=== PATIENT | female | born 1980 | race African-American/Black ===

== ENCOUNTER 2017-07-31 07:05 | Emergency (ER) | payer OTHER, SELFPAY ==
[2017-07-31] MEDS ORDERED: Bupivacaine 0.5% 10 ML VIAL ONE (07:23)
[2017-07-31] MEDS ORDERED: Lidocaine Viscous Sol 2% 15 ml UD Cup ONE (07:27)
[2017-07-31] MEDS ORDERED: Ketorolac Tromethamine 60 MG/2 ML VIAL ONE (07:27)
[2017-07-31] MEDS ORDERED: Lidocaine 1% w/Epinephrine 1:200K 30 ML VIAL ONE (07:27)
[2017-07-31] MEDS ORDERED: Clindamycin 150 MG CAP ONE (07:54)
== END 2017-07-31 08:15 | disposition home or self-care (01) ==
LOC: ERS 07:05
DX: K02.9 Dental caries, unspecified (principal); I10 Essential (primary) hypertension; Z87.891 Personal history of nicotine dependence; Z79.899 Other long term (current) drug therapy
CPT/HCPCS: 64400; 96372; J1885; J3490

== ENCOUNTER 2018-10-08 12:34 | Emergency (ER) | payer OTHER, SELFPAY ==
[2018-10-08] MEDS ORDERED: HYDROcodone/Acetaminophen 10/325 mg Tablet ONE (13:12)
== END 2018-10-08 13:17 | disposition home or self-care (01) ==
LOC: ERS 12:34
DX: K03.81 Cracked tooth (principal); F41.9 Anxiety disorder, unspecified; Z79.899 Other long term (current) drug therapy
CPT/HCPCS: 99282

== ENCOUNTER 2019-03-04 09:00 | Outpatient (CLI) | payer OTHER ==
--- NOTE | 2019-03-04 10:10 | CT ---
CT ABDOMEN AND PELVIS WITH IV CONTRAST 03/04/2019 CLINICAL INFORMATION: Umbilical pain and swelling for a few months. Patient states intermittent drainage from the umbilicus . COMPARISON: 03/12/2017 Technique: Multiple contiguous axial CT images are obtained through the abdomen and pelvis with IV contrast. Cor onal reformatted images are provided. FINDINGS: Lower Chest: within normal limits. Vessels: The abdominal aorta is normal in caliber without evidence of an aortic dissection. Abdomen: Portal vein:Patent Gallbladder: Within normal limits for CT imaging. Liver: within normal limits. Spleen: within normal limits. Pancreas: within normal limits. Adrenals: within normal limits. Kidneys: within normal limits. Bowel: Normal caliber. Appendix: The appendix is visualized and normal in caliber. Peritoneum: No ascites or free air; no fluid collection. Mesentery and Retroperitoneum: No enlarged mesenteric or retroperitoneal lymph nodes. Abdominal Wall: At the umbilicus, there is a masslike increased density structure measuring 16 mm x 1 5 mm. This does represent an interval change when compared to the study in 2017 and was not visualized on that exam. Pelvis: Reproductive Organs: Small low-density structures in each ovary likely related to dominant ovarian fo llicles. Uterus is not visualized likely due to prior hysterectomy. Pelvis within normal limits. Bladder: within normal limits. Bones: within normal limits. IMPRESSION: 1. Increased density masslike structure measuring 16 mm in greatest dimension at the level of the umb ilicus. This does represent an interval change from study in 2017. Exact etiology for this structure is uncertain. Clinical correlation is suggested as this is at the skin surface. 2. Interval hysterectomy. 3. No acute findings in the abdomen or pelvis.
--- NOTE | 2019-03-04 16:30 | HP ---
HISTORY OF PRESENT ILLNESS: Kelly Hussein is a 38-year-old female with a several-month history of enlarging umbilicus. It is very painful. She has been on antibiotics and feels somewhat better, but has still an umbilical mass. She underwent a CAT scan of the abdomen and pelvis revealing absence of any hernia, just the umbilical mass. Although completing antibiotics, it is still very indurated and is tender to palpation, and plan is for excision of this umbilical mass/cyst with repair of hernia if indicated, but no mesh will be used. She understands risks and benefits and consents. MEDICATIONS: 1. Lisinopril 20 mg a day. 2. BuSpar daily. 3. Cipro completed. PAST MEDICAL HISTORY: History of alcoholism and drug abuse, now sober; anxiety; allergies; headaches; and hypertension. ALLERGIES: PENICILLIN ANAPHYLAXIS. PAST SURGICAL HISTORY: Hysterectomy in 08/2018, at [facility]. REVIEW OF SYSTEMS: Noncontributory. PHYSICAL EXAMINATION: VITAL SIGNS: Weight 153 pounds, height 65 inches, 25 BMI, blood pressure 141/100, heart rate 113, respiratory rate 19. HEAD, EYES, EARS, NOSE, AND THROAT: Unremarkable. LUNGS: Clear to auscultation. CARDIAC: Regular rate and rhythm without murmur or gallop. ABDOMEN: Soft and nontender except the umbilicus, where she has a tender umbilical mass with hyperpigmented skin. It is very tender. She has a piercing above this. EXTREMITIES: Unremarkable. ASSESSMENT AND PLAN: Umbilical mass without radiological imaging evidence of a hernia. We would recommend excision of this umbilical mass and fabrication of the umbilicus. She understands risks and benefits of surgery and consents. She does not care about the piercing. She has not used this piercing. She has used in her 20s. Job ID: [id number]
== END 2019-03-04 09:01 | disposition home or self-care (01) ==
LOC: BICCT 09:00
PROVIDERS: ATTEND Specialist
DX: R10.33 Periumbilical pain (principal); R93.5 Abnormal findings on diagnostic imaging of other abdominal regions, including retroperitoneum; Z90.710 Acquired absence of both cervix and uterus
CPT/HCPCS: 74177

== ENCOUNTER 2019-03-31 09:49 | Day surgery (SDC) | payer OTHER ==
[2019-03-30 09:15] VITALS: BMI 25.1
[2019-03-31 10:24] LABS: #Basophils 0.1 thou/uL (0.0-0.2); #Eosinphils 0.3 thou/uL (0.0-0.7); #Lymphocytes 1.7 thou/uL (1.20-3.40); #Monocytes 0.6 thou/uL (0.11-0.59); #Neutrophils 3.2 thou/uL (1.40-6.50); %Basophils 1.5 % (0.0-1.0); %Eosinophils 4.3 % (0.0-10.0); %Lymphocytes 29.1 % (21.0-51.0); %Monocytes 9.4 % (0.0-10.0); %Neutrophils 55.7 % (42.0-75.0); Mean Corpuscular HGB CONC 35.3 g/dL (32.0-36.0); Mean Corpuscular Hemoglobin 32.6 pg (27.0-31.0); Mean Corpuscular Volume 92.3 fL (78.0-98.0); Mean Platelet Volume 8.1 fL (7.4-10.4); Platelet Count 236 thou/uL (130-400); RBC Distribution Width 12.7 % (11.5-14.5); Red Blood Cell (RBC) Count 4.28 mill/uL (4.20-5.40); White Blood Cell (WBC) Count 5.8 thou/uL (4.8-10.8)
[2019-03-31] MEDS ORDERED: Ketorolac Tromethamine 30 MG/ML VIAL ONE (10:35)
[2019-03-31] MEDS ORDERED: Levofloxacin 500 mg/D5W 100 ml Premix Bag ONE (10:35)
[2019-03-31] MEDS ORDERED: Midazolam HCl 2 mg/2 ml Vial ONE (10:35)
[2019-03-31 10:52] LABS: Anion Gap 15 mmol/L (10-20); BUN (Urea Nitrogen) 11 mg/dL (7.0-18.7); Calc. Creatinine Clearance 99 mL/min (70-130); Calcium 9.6 mg/dL (7.8-10.44); Carbon Dioxide 21 mmol/L (22-29); Chloride 104 mmol/L (98-107); Estimated GFR-MDRD Greater than 90; Glucose 95 mg/dL (70-105); Potassium 4.3 mmol/L (3.5-5.1); Sodium 136 mmol/L (136-145)
[2019-03-31] MEDS ORDERED: Fentanyl 250 MCG/5 ML VIAL ONE (11:34)
[2019-03-31] MEDS ORDERED: Bupivacaine HCl 0.5%/Epinephrine 1:200,000/PF 30 ml Vial ONE (11:54)
[2019-03-31] MEDS ORDERED: Lidocaine 2% PF 5 ML VIAL ONE (11:54)
[2019-03-31] MEDS ORDERED: HYDROcodone/Acetaminophen 5/325 mg Tablet ONE (13:52)
--- NOTE | 2019-03-31 15:54 | OP ---
DATE OF PROCEDURE: 03/31/2019 PREOPERATIVE DIAGNOSES: 1. Umbilical pain. 2. Umbilical mass. POSTOPERATIVE DIAGNOSIS: Umbilical hernia, incarcerated with fat. PROCEDURE PERFORMED: 1. Umbilical hernia repair without mesh. 2. Resection of umbilicus with umbilicoplasty. ANESTHESIA: General, local 0.5% Marcaine with epinephrine 30 mL mixed with 2% Xylocaine 10 mL. DESCRIPTION OF PROCEDURE: The patient was taken to the operating room, where under general anesthesia, abdomen was prepared with ChloraPrep and draped in routine fashion. We thinned out skin, blackened skin, infraumbilical incision was made and carried out to skin and subcutaneous tissue through normal skin and there was noted to be a small umbilical hernia defect with incarcerated fat, that was transected and dissected free. The fascia of umbilicus was excised elliptically and submitted to Pathology. Hemostasis was obtained with cautery. Fascia was approximated with [id number] with interrupted sutures of #1 Maxon. Umbilicoplasty was undertaken with the subcutaneous tissues approximated in 4 quadrants with 3-0 Monocryl and was secured to the fascia. 4-0 Monocryl to close the subdermal tissue. Umbilicoplasty performed. Dermal glue applied. Local anesthetic was infiltrated in the skin and subcutaneous tissue about the operative site. The patient tolerated the procedure well. Job ID: [id number]
--- NOTE | 2019-04-02 08:11 | EKG ---
Test Reason : PREOP Blood Pressure : / mmHG Vent. Rate : 097 BPM Atrial Rate : 097 BPM P-R Int : 138 ms QRS Dur : 076 ms QT Int : 362 ms P-R-T Axes : 063 041 032 degrees QTc Int : 459 ms Normal sinus rhythm Normal ECG When compared with ECG of 12-MAR-2017 12:09, Nonspecific T wave abnormality has replaced inverted T waves in Inferior leads Nonspecific T wave abnormality no longer evident in Anterolateral leads Confirmed by DR. Rene MILLS ([id number]) on 04/02/2019 8:11:11 AM Referred By: MINA Confirmed By:DR. Rene MILLS
== END 2019-03-31 14:35 | disposition home or self-care (01) ==
LOC: SDC 09:49
PROVIDERS: ATTEND Specialist
PROC: 0WQF0ZZ Repair Abdominal Wall, Open Approach (ICD-10-PCS; principal; 2019-03-31)
DX: K42.0 Umbilical hernia with obstruction, without gangrene (principal); N80.8 Other endometriosis; Z88.0 Allergy status to penicillin; Z79.899 Other long term (current) drug therapy
CPT/HCPCS: 36415; 80048; 85025; 88305; 93005; 93010; J0131; J0670; J1885; J1956; J2001; J2250; J3010

== ENCOUNTER 2019-06-21 07:35 | Outpatient (CLI) | payer OTHER ==
--- NOTE | 2019-06-21 12:02 | RAD ---
ESOPHAGRAM: INDICATION: Dysphagia. FINDINGS: Swallowing mechanism and esophagus appear unremarkable. No evidence of stricture. A barium tablet p assed through the EG junction without difficulty. No significant diaphragmatic hernia. No reflux de monstrated. IMPRESSION: Unremarkable esophagram. POS: AMIE
== END 2019-06-21 07:36 | disposition home or self-care (01) ==
LOC: RAD 07:35
PROVIDERS: ATTEND Physician Assistant Medical
DX: R13.10 Dysphagia, unspecified (principal); R05 Cough
CPT/HCPCS: 74220

== ENCOUNTER 2019-07-06 10:13 | Emergency (ER) | payer OTHER | END 2019-07-06 10:51 | disposition home or self-care (01) | LOC: ERS 10:13 | DX: K05.10 Chronic gingivitis, plaque induced (principal); K02.9 Dental caries, unspecified; I10 Essential (primary) hypertension; F41.9 Anxiety disorder, unspecified; Z87.891 Personal history of nicotine dependence | CPT/HCPCS: 99283 ==

== ENCOUNTER 2019-12-06 07:31 | Outpatient (CLI) | payer OTHER ==
--- NOTE | 2019-12-06 09:59 | MRI ---
MRI RIGHT FOREARM WITHOUT CONTRAST: DATE: 12/06/2019. 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 FINDINGS: No comparisons. There is a 4 mm circumscribed mass at the ulnar aspect of the ulnar nerve in its course subjacent to the flexor carpi ulnaris muscle approximately 5.5 cm proximal to the distal ulnar margin. There is f ocal fatty infiltration of the overlying flexor carpi ulnaris muscle in this region. This mass is in separable from the ulnar nerve and demonstrates no definite fat plane between this and the superficia l flexor carpi ulnaris muscle. The signal characteristics of this mass are isointense to skeletal mu scle on the T1 and fluid sensitive sequences. The ulnar nerve itself demonstrates normal size and si gnal intensity. The remainder of the visualized course of the regional major neurovascular structure s appear unremarkable. Regional marrow and muscular signal appear normal. There is partially visualized presumed ganglion f ormation present at the dorsal aspect of the 2nd CMC joint measuring 11 mm in greatest transverse dim ension and about 11 mm in craniocaudal dimension. IMPRESSION: Nonspecific 4 mm mass inseparable from the ulnar nerve as described above. Given the signal intensit y similar to skeletal muscle and history of trauma to this region, this could represent displacement of flexor carpi ulnaris musculature to abut the ulnar nerve (such as with fascial muscle herniation). Posttraumatic neuroma could also be considered. Other etiologies are not excluded. Consider postc ontrast imaging as indicated. POS: RAQUEL
== END 2019-12-06 07:32 | disposition home or self-care (01) ==
LOC: BICMRI 07:31
PROVIDERS: ATTEND Orthopaedic Surgery Hand Surgery
DX: S54.01XA Injury of ulnar nerve at forearm level, right arm, initial encounter (principal)

== ENCOUNTER 2020-03-16 05:27 | Outpatient (CLI) | payer OTHER ==
[2020-03-16 16:37] LABS: #Basophils 0.1 thou/uL (0.0-0.2); #Eosinphils 0.5 thou/uL (0.0-0.7); #Lymphocytes 1.7 thou/uL (1.20-3.40); #Monocytes 0.7 thou/uL (0.11-0.59); #Neutrophils 4.7 thou/uL (1.40-6.50); %Basophils 0.8 % (0.0-1.0); %Lymphocytes 22.4 % (21.0-51.0); %Monocytes 8.9 % (0.0-10.0); Hemoglobin 12.8 g/dL (12.0-16.0); Mean Corpuscular HGB CONC 34.7 g/dL (32.0-36.0); Mean Corpuscular Hemoglobin 31.9 pg (27.0-31.0); Mean Corpuscular Volume 91.9 fL (78.0-98.0); Mean Platelet Volume 8.8 fL (7.4-10.4); Platelet Count 223 thou/uL (130-400); Red Blood Cell (RBC) Count 4.01 mill/uL (4.20-5.40); White Blood Cell (WBC) Count 7.6 thou/uL (4.8-10.8)
[2020-03-16 16:47] LABS: BHCG - Serum Negative (NEGATIVE); Pregs Control Background? CLEAR/WHITE (CLR/WHITE); Pregs Control Bar Appear? YES (CONTROL BAR)
[2020-03-17 12:52] LABS: SARS-CoV-2 MS2 Positive; SARS-CoV-2 N Gene Negative; SARS-CoV-2 S Gene Negative; SARS-CoV-2 orf1ab Negative
== END 2020-03-16 05:28 | disposition home or self-care (01) ==
LOC: LABBT 05:27
PROVIDERS: ATTEND Orthopaedic Surgery Hand Surgery
DX: Z01.812 Encounter for preprocedural laboratory examination (principal); Z11.59 Encounter for screening for other viral diseases; D36.10 Benign neoplasm of peripheral nerves and autonomic nervous system, unspecified
CPT/HCPCS: 84703; 85025; 87635; U0003

== ENCOUNTER 2020-03-20 13:12 | Observation (INO) | payer OTHER ==
[~2020-03-20 13:12] MED LIST: Esmolol 100 MG/10 ML VIAL ONE; Ketorolac Tromethamine 30 MG/ML VIAL ONE; Lidocaine 1% PF 5 ML VIAL ONE; Ondansetron PF 4 MG/2 ML Vial ONE; PROPOFOL 200 MG/20 ML VIAL ONE
[2020-03-20] MEDS ORDERED: Sodium Chloride 0.9% 10 ML ONE (14:48)
[2020-03-20] MEDS ORDERED: Bupivacaine PF 0.5% 30 ML VIAL ONE (14:48)
[2020-03-20] MEDS ORDERED: Bacitracin Zinc Ointment 30 gm TUBE ONE (14:48)
[2020-03-20] MEDS ORDERED: Betamet Acet/Betamet Na Ph 30 MG/5 ML VIAL ONE ×2 (14:48→18:29)
[2020-03-20] MEDS ORDERED: Midazolam HCl 2 mg/2 ml Vial ONE ×2 (14:50→15:15)
[2020-03-20] MEDS ORDERED: Fentanyl 100 MCG/2 ML VIAL ONE ×4 (15:15→19:43)
[2020-03-20] MEDS ORDERED: HYDROmorphone 2 MG/ML VIAL ONE (18:04)
[2020-03-20] MEDS ORDERED: Promethazine HCl 25 MG/ML VIAL IM PRN ×2 (19:18→19:27)
[2020-03-20] MEDS ORDERED: Meperidine HCl/PF 25 MG/ML VIAL SLOW IVP PRN (19:18)
[2020-03-20] MEDS ORDERED: HYDROmorphone 2 MG/ML VIAL SLOW IVP PRN (19:18)
[2020-03-20] MEDS ORDERED: PACU-Morphine 4MG/ML VIAL SLOW IVP PRN (19:18)
[2020-03-20] MEDS ORDERED: Ondansetron HCl/PF 4 MG/2 ML Vial IVP PRN (19:18)
[2020-03-20] MEDS ORDERED: Morphine Sulfate 2 MG/ML SYRINGE SLOW IVP PRN (19:18)
[2020-03-20] MEDS ORDERED: Promethazine HCl 25 MG/ML VIAL SLOW IVP PRN (19:18)
[2020-03-20] MEDS ORDERED: traMADol HCl 50 MG TAB PO PRN (19:27)
[2020-03-20] MEDS ORDERED: Milk Of Magnesia 30 ML UDCUP PO PRN (19:27)
[2020-03-20] MEDS ORDERED: Fentanyl 100 MCG/2 ML VIAL SLOW IVP PRN (19:27)
[2020-03-20] MEDS ORDERED: Morphine 4 MG/ML VIAL SLOW IVP PRN (19:27)
[2020-03-20] MEDS ORDERED: Ondansetron PF 4 MG/2 ML Vial IV PRN (19:27)
[2020-03-20] MEDS ORDERED: Acetaminophen/Codeine 30-300mg Tablet PO PRN (19:27)
[2020-03-20] MEDS ORDERED: Bisacodyl 10 MG SUPP PR PRN (19:27)
[2020-03-20] MEDS ORDERED: Acetaminophen 325 MG TAB PO PRN (19:27)
[2020-03-20] MEDS ORDERED: Communication Order-Pharmacy FS SCH (19:30)
[2020-03-20] MEDS ORDERED: Ketorolac Tromethamine 30 MG/ML VIAL IVP PRN (19:30)
[2020-03-20] MEDS ORDERED: Meperidine HCl/PF 25 MG/ML VIAL IM PRN (19:30)
[2020-03-20] MEDS: Aspirin 81 mg Enteric Coated Tablet PO SCH (21:44)
[2020-03-20] MEDS ORDERED: TETANUS AND DIPHTHERIA TOX/PF 0.5 ML DISP.SYRIN IM SCH (22:00)
[2020-03-20 22:51] VITALS: BMI 25.1
[2020-03-21] MEDS: Sodium Chloride 0.9% 1,000 ML IV SCH ×3 (01:42→18:36)
[2020-03-21] MEDS: Vancomycin HCl 1.25 GM in Sodium Chloride 0.9% 250 ML 250 ML IVPB SCH ×2 (03:44→17:04)
--- NOTE | 2020-03-21 08:37 | OP ---
DATE OF PROCEDURE: 03/20/2020 PREOPERATIVE DIAGNOSES: 1. 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 2. Right cubital tunnel level ulnar nerve compression. FINDINGS: 1. Severe right cubital tunnel ulnar nerve compression at the cubital tunnel and along the intermuscular septum. 2. Right distal forearm traumatic scarring with almost a 1-cm wide area of flattening of the nerve and sheath injury, but no laceration of the nerve proper. 3. Very tight cubital tunnel intermuscular septum area and almost a 2-cm area of scarring over the ulnar nerve just beginning and coursing distal to the superficial ulnar nerve branch. PROCEDURES PERFORMED: 1. Microscopic neuroplasty of ulnar nerve at the forearm level. 2. Cubital tunnel release with subcutaneous transposition of ulnar nerve at the elbow level both on the right side. TOURNIQUET TIME: 116 minutes. ESTIMATED BLOOD LOSS: . DESCRIPTION OF PROCEDURE: After successful general endotracheal anesthesia, the limb was prepped and draped. We outlined a zigzag incision centered over the 2.5 cm long oblique laceration at the ulnar distal third of forearm just proximal to the Guyon canal and then we also outlined a cubital tunnel incision that was midline except for coursing slightly ulnarly around the olecranon prominence. We placed the arm in a sterile tourniquet. We exsanguinated the limb after injecting both sites with 15 mL of 0.5% Marcaine and inflated tourniquet to 250 mmHg pressure. We first approached the distal incision and expanded the incision and carried through skin and subcutaneous tissue and immediately saw the mass of scarring that included the ulnar artery. We performed an angioplasty under loupe magnification and then released some of the structure around the ulnar nerve with tenotomy scissor loosely. We then brought the microscope to the field. Under the microscope, we the scar from the nerve. We found the three major bundles of the ulnar nerve, although they were from the sheath, there was no laceration. In dissecting, there was an area of the sheath that appeared to be , so on the microscope, we stitched this with a 9-0 Nurolon x2 sutures. Otherwise, there was no evidence of abnormality other than severe compression and flattening. Once we this area, we would see later that it would have increased flow once the neuroplasty had been completed and we released the tourniquet. We also superficial ulnar nerve branch well past its course underneath the flexor carpi ulnaris tendon. The patient then had a moist sponge applied here and then we turned our attention to the cubital tunnel region. Arm was placed with forward flexion of the shoulder, elbow flexion, and held with assistive devices, and we made approach using the entire incision outlined beginning approximately 6 cm distal to the center of the olecranon and then coursing approximately 10 cm proximal. We carried through skin and subcutaneous tissue and then the proximal portion of the wound following the ulnar nerve where it was greatly compressed by the intermuscular septum. We freed this and then began a proximal to distal ulnar nerve neuroplasty. We the nerve completely well past the origin of the flexor branches to include the fascia over the flexor carpi muscles and the flexor digitorum as well as visualization of branches. There was marked compression in the saxman cubital tunnel, intermuscular septum, and within the fascia of the triceps. Once we had done this release, we then the nerve, freed it under loupe magnification with sharp and blunt dissection alternating until we could transpose it without undue pressure distal to the medial epicondyle. We created a flap of fat, allowed the nerve to fit into this almost 2 cm superficial to the medial epicondyle and sutured this without undue tension to create a small tunnel in the lateral epicondyle with absorbable Vicryl suture 2-0. Once we had done this, we then released the tourniquet and obtained hemostasis. We then closed the cubital tunnel incision with a running 4-0 Monocryl and the subcutaneous and the epidermis with interrupted 4-0 nylon in a mattress pattern. We then closed the distal wound with only 4-0 nylon ensuring that we did not injure the artery as well. Celestone was placed on both nerve sites, a total of 5 mL at each site. This was prior to wound closure. A bulky dressing was applied along with a long-arm splint with the elbow at 45 degrees of flexion. The patient left the operating room without evidence of anesthetic or operative complication. Job ID: [id number]
[2020-03-21] MEDS: Aspirin 81 mg Enteric Coated Tablet PO SCH (08:44)
[2020-03-21] MEDS ORDERED: Enoxaparin Sodium 30 MG/0.3 ML SYRINGE SC SCH (09:00)
[2020-03-21] MEDS: HYDROcodone/Acetaminophen 10/325 mg Tablet PO PRN ×2 (10:02→14:21)
[2020-03-21 16:36] VITALS: BP 158/92; TEMP 98.1
== END 2020-03-21 19:00 | disposition home or self-care (01) ==
LOC: SDC 13:12 → SURG A 19:30
PROVIDERS: ADMIT Orthopaedic Surgery Hand Surgery; ATTEND Orthopaedic Surgery Hand Surgery
PROC: 01N40ZZ Release Ulnar Nerve, Open Approach (ICD-10-PCS; principal; 2020-03-21)
PROC: 01Q40ZZ Repair Ulnar Nerve, Open Approach (ICD-10-PCS; 2020-03-21)
DX: D36.12 Benign neoplasm of peripheral nerves and autonomic nervous system, upper limb, including shoulder (principal); G56.21 Lesion of ulnar nerve, right upper limb; I10 Essential (primary) hypertension; F41.9 Anxiety disorder, unspecified; F32.9 Major depressive disorder, single episode, unspecified; F43.10 Post-traumatic stress disorder, unspecified; Z79.899 Other long term (current) drug therapy; Z87.891 Personal history of nicotine dependence; Z88.0 Allergy status to penicillin
CPT/HCPCS: 93005; 93010; 96361; 96365; 96372; 96375; 96376; G0378; J0690; J0702; J1170; J1650; J1885; J2250; J2405; J2550; J2704; J3010; J3370; J3490; J7050; S0020

== ENCOUNTER 2020-10-30 09:21 | Outpatient (CLI) | payer OTHER ==
--- NOTE | 2020-10-30 10:32 | ULT ---
PELVIC ULTRASOUND WITH MILES SCALE AND COLOR FLOW AND SPECTRAL DOPPLER IMAGING: HISTORY: Status post hysterectomy. Cyclical pelvic pain. FINDINGS: The patient is post hysterectomy. The right ovary measures 2.6 x 2.8 x 1.5 cm and the left ovary evan sures 2.9 x 3.6 x 3.8 cm. There is a 2.4 cm cyst in the left ovary. There is flow demonstrated to b oth ovaries. No free fluid is seen in the pelvis. IMPRESSION: Status post hysterectomy with a 2.4 cm left ovarian cyst. POS: OFF
== END 2020-10-30 09:22 | disposition home or self-care (01) ==
LOC: BICULT 09:21
PROVIDERS: ATTEND Physician Assistant Medical
DX: R10.32 Left lower quadrant pain (principal); N83.202 Unspecified ovarian cyst, left side; Z90.710 Acquired absence of both cervix and uterus
CPT/HCPCS: 76856; 93976

== ENCOUNTER 2021-01-10 13:27 | Outpatient (CLI) | payer OTHER | END 2021-01-10 13:28 | disposition home or self-care (01) | LOC: BICULT 13:27 | PROVIDERS: ATTEND Family Medicine | DX: N83.209 Unspecified ovarian cyst, unspecified side (principal); Z90.710 Acquired absence of both cervix and uterus | CPT/HCPCS: 76856 ==

== ENCOUNTER 2022-02-07 07:55 | Outpatient (CLI) | payer OTHER | END 2022-02-07 07:56 | disposition home or self-care (01) | LOC: BICULT 07:55 | PROVIDERS: ATTEND Physician Assistant Medical | DX: R10.11 Right upper quadrant pain (principal); K21.9 Gastro-esophageal reflux disease without esophagitis | CPT/HCPCS: 76705 ==

== ENCOUNTER 2022-07-25 12:16 | Outpatient (CLI) | payer OTHER | END 2022-07-25 12:17 | disposition home or self-care (01) | LOC: BICMAMMO 12:16 | PROVIDERS: ATTEND Family Medicine | DX: Z12.31 Encounter for screening mammogram for malignant neoplasm of breast (principal); Z80.3 Family history of malignant neoplasm of breast | CPT/HCPCS: 77067 ==

== ENCOUNTER 2022-12-13 05:33 | Observation (INO) | payer OTHER ==
[2022-12-13 06:36] LABS: #Basophils 0.1 thou/uL (0.0-0.2); #Eosinphils 0.1 thou/uL (0.0-0.7); #Lymphocytes 1.5 thou/uL (1.20-3.40); #Monocytes 0.5 thou/uL (0.11-0.59); #Neutrophils 6.7 thou/uL (1.40-6.50); %Basophils 0.8 % (0.0-1.0); %Eosinophils 0.8 % (0.0-10.0); %Lymphocytes 17.2 % (21.0-51.0); %Monocytes 6.1 % (0.0-10.0); %Neutrophils 75.1 % (42.0-75.0); Hemoglobin 14.3 g/dL (12.0-16.0); Mean Corpuscular Hemoglobin 33.1 pg (27.0-31.0); Mean Platelet Volume 8.1 fL (7.4-10.4); Platelet Count 225 10x3/uL (130-400); RBC Distribution Width 11.8 % (11.5-14.5); Red Blood Cell (RBC) Count 4.33 mill/uL (4.20-5.40); White Blood Cell (WBC) Count 8.9 10x3/uL (4.8-10.8)
[2022-12-13] MEDS ORDERED: LORazepam 2 MG/ML SYR.(CARPUJECT) ONE (06:36)
[2022-12-13 06:38] LABS: Bilirubin Negative (Negative); Blood, Urine Negative (Negative); Clarity Clear (Clear); Glucose, Urine (Dipstick) Normal (Negative); Ketone, Urine Negative (Negative); Leukocyte Negative Leu/uL (Negative); Nitrite Negative (Negative); Protein, Urine (Dipstick) Negative (Neg-Trace); Specific Gravity, Urine 1.004 (1.002-1.036); Urobilinogen Normal mg/dL (Less than 2); pH, Urine 5.5 (5.0-9.0)
[2022-12-13 06:41] LABS: Pregnancy Test - Urine (BHCG) Negative (Negative); Pregu Control Background? CLEAR/WHITE (CLR/WHITE); Pregu Control Bar Appear? YES (CONTROL BAR); Specific Gravity 1.004 (1.002-1.036)
[2022-12-13 06:46] LABS: Amphetamine Not Detected (NotDetected); Barbiturates Screen Not Detected (NotDetected); Benzodiazepine Screen Not Detected (NotDetected); Cocaine Metabolite Screen Not Detected (NotDetected); Methadone Not Detected (NotDetected); Methamphetamine Not Detected (NotDetected); Opiate Screen Not Detected (NotDetected); Oxycodone Screen Not Detected (NotDetected); Phencyclidine (PCP) Not Detected (NotDetected); THC/Cannabinoid Screen Not Detected (NotDetected); Tricyclic Screen Not Detected (NotDetected)
[2022-12-13 06:58] LABS: ALT (SGPT) 25 U/L (8-55); AST (SGOT) 19 U/L (5-34); Acetaminophen Less than 10.0 mcg/mL (10.0-30.0); Alcohol Less than 10 mg/dL (Less than 10); Alkaline Phosphatase 56 U/L (40-110); Anion Gap 13 mmol/L (10-20); BUN (Urea Nitrogen) 6 mg/dL (7.0-18.7); Bilirubin, Total 0.8 mg/dL (0.2-1.2); Calc. Creatinine Clearance 0 mL/min (70-130); Carbon Dioxide 25 mmol/L (22-29); Chloride 92 mmol/L (98-107); Estimated GFR 93; Globulin 3.1 g/dL (2.4-3.5); Glucose 140 mg/dL (70-105); Lipase 27 U/L (8-78); Potassium 3.4 mmol/L (3.5-5.1); Protein, Total 8.1 g/dL (6.0-8.3); Salicylate Less than 8.0 mg/dL (15.0-30.0); Sodium 127 mmol/L (136-145)
[2022-12-13] MEDS ORDERED: Thiamine HCl 200 MG/2 ML VIAL SLOW IVP SCH (07:00)
[2022-12-13] MEDS ORDERED: Multivit, Therapeutic 1 TAB PO SCH (07:00)
[2022-12-13 07:53] LABS: Magnesium 1.9 mg/dL (1.6-2.6)
[2022-12-13] MEDS ORDERED: Electrolyte Replacement Protocol 1 EACH FS SCH (08:00)
[2022-12-13] MEDS ORDERED: Ondansetron ODT 4 MG TAB PO PRN ×2 (08:00)
[2022-12-13] MEDS ORDERED: Acetaminophen 325 MG TAB PO PRN (08:00)
[2022-12-13] MEDS ORDERED: Potassium Chloride 20 MEQ TAB PO SCH (08:15)
[2022-12-13] MEDS ORDERED: Non-Formulary Item 1 EACH (Buspirone Hcl [Buspirone Hcl] 15 MG Tablet) PO SCH (09:05)
[2022-12-13] MEDS ORDERED: Gabapentin 300 MG CAP PO PRN (09:05)
[2022-12-13] MEDS ORDERED: Non-Formulary Item 1 EACH (Benazepril Hcl [Benazepril Hcl] 40 MG) PO SCH (09:10)
[2022-12-13 09:20] LABS: Phosphorus 3.2 mg/dL (2.3-4.7)
[2022-12-13] MEDS: Famotidine 20 MG TAB PO SCH ×2 (09:43→19:59)
[2022-12-13] MEDS: Folic Acid 1 MG TAB PO SCH (09:43)
[2022-12-13] MEDS: ALPRAZolam 0.25 MG TAB PO SCH ×2 (09:43→19:59)
[2022-12-13] MEDS ORDERED: Magnesium 2 GM/50 ML(in water) 2 GM in Premix Bag 1 BAG IVPB SCH (09:45)
[2022-12-13 09:47] VITALS: BMI 27.0
[2022-12-13] MEDS: Multivit, Therapeutic 1 TAB PO SCH (11:37)
[2022-12-13] MEDS: Thiamine HCl 200 MG/2 ML VIAL SLOW IVP SCH (11:38)
[2022-12-13 14:05] LABS: Potassium 4.8 mmol/L (3.5-5.1)
[2022-12-13] MEDS: busPIRone HCl 5 MG TAB PO SCH ×2 (16:08→19:59)
[2022-12-13] MEDS ORDERED: Non-Formulary Item 1 EACH (Prazosin Hcl [Prazosin Hcl] 2 MG Capsule) PO SCH (21:00)
[2022-12-13] MEDS ORDERED: Prazosin HCl 1 MG CAP PO SCH (21:00)
[2022-12-14 05:24] LABS: #Basophils 0.1 thou/uL (0.0-0.2); #Eosinphils 0.3 thou/uL (0.0-0.7); #Lymphocytes 2.6 thou/uL (1.20-3.40); #Monocytes 0.7 thou/uL (0.11-0.59); #Neutrophils 3.8 thou/uL (1.40-6.50); %Basophils 0.8 % (0.0-1.0); %Eosinophils 3.5 % (0.0-10.0); %Lymphocytes 35.1 % (21.0-51.0); %Monocytes 8.8 % (0.0-10.0); %Neutrophils 51.8 % (42.0-75.0); Hemoglobin 13.1 g/dL (12.0-16.0); Mean Corpuscular HGB CONC 34.3 g/dL (32.0-36.0); Mean Corpuscular Hemoglobin 32.1 pg (27.0-31.0); Mean Corpuscular Volume 93.6 fl (78.0-98.0); Mean Platelet Volume 8.2 fL (7.4-10.4); Platelet Count 236 10x3/uL (130-400); Red Blood Cell (RBC) Count 4.09 mill/uL (4.20-5.40); White Blood Cell (WBC) Count 7.3 10x3/uL (4.8-10.8)
[2022-12-14 05:55] LABS: Anion Gap 12 mmol/L (10-20); BUN (Urea Nitrogen) 8 mg/dL (7.0-18.7); Calc. Creatinine Clearance 100 mL/min (70-130); Calcium 9.7 mg/dL (7.8-10.44); Carbon Dioxide 25 mmol/L (22-29); Chloride 102 mmol/L (98-107); Estimated GFR 88; Glucose 105 mg/dL (70-105); Magnesium 2.1 mg/dL (1.6-2.6); Sodium 135 mmol/L (136-145)
[2022-12-14 08:03] VITALS: BP 143/91; TEMP 98.9
[2022-12-14] MEDS ORDERED: Lisinopril 20 MG TAB PO SCH (09:00)
[2022-12-14] MEDS: ALPRAZolam 0.25 MG TAB PO SCH (09:04)
[2022-12-14] MEDS: busPIRone HCl 5 MG TAB PO SCH (09:04)
[2022-12-14] MEDS: Famotidine 20 MG TAB PO SCH (09:04)
[2022-12-14] MEDS: Folic Acid 1 MG TAB PO SCH (09:04)
[2022-12-14] MEDS: Thiamine HCl 200 MG/2 ML VIAL SLOW IVP SCH (09:04)
[2022-12-14] MEDS: Multivit, Therapeutic 1 TAB PO SCH (09:04)
[2022-12-14] MEDS ORDERED: Non-Formulary Item 1 EACH (Benazepril Hcl [Benazepril Hcl] 40 MG Tablet) PO SCH (09:05)
[2022-12-16] MEDS ORDERED: Thiamine 100 MG TAB PO SCH (09:00)
== END 2022-12-14 10:35 | disposition home or self-care (01) ==
LOC: ERS 05:33 → 2SW 07:39
PROVIDERS: ADMIT Student in an Organized Health Care Education/Training Program; ATTEND Student in an Organized Health Care Education/Training Program
DX: F10.239 Alcohol dependence with withdrawal, unspecified (principal); F13.939 Sedative, hypnotic or anxiolytic use, unspecified with withdrawal, unspecified; E87.1 Hypo-osmolality and hyponatremia; F32.9 Major depressive disorder, single episode, unspecified; F43.10 Post-traumatic stress disorder, unspecified; E78.5 Hyperlipidemia, unspecified; K21.9 Gastro-esophageal reflux disease without esophagitis; I10 Essential (primary) hypertension; F41.1 Generalized anxiety disorder; Z51.5 Encounter for palliative care; Z87.891 Personal history of nicotine dependence; Z79.899 Other long term (current) drug therapy; Z88.0 Allergy status to penicillin; Y90.0 Blood alcohol level of less than 20 mg/100 ml
CPT/HCPCS: 36415; 71045; 80048; 80053; 80306; 80307; 81003; 81025; 82570; 83690; 83735; 83930; 83935; 84100; 84300; 84443; 84484; 85025; 93005; 96365; 96374; 96375; 96376; G0378; J2060; J3411; J3475

== ENCOUNTER 2023-01-08 08:01 | Emergency (ER) | payer OTHER ==
[2023-01-08] MEDS ORDERED: Ondansetron PF 4 MG/2 ML Vial ONE (08:43)
[2023-01-08 08:55] LABS: #Basophils 0.1 thou/uL (0.0-0.2); #Eosinphils 0.1 thou/uL (0.0-0.7); #Lymphocytes 1.5 thou/uL (1.20-3.40); #Monocytes 0.4 thou/uL (0.11-0.59); #Neutrophils 6.7 thou/uL (1.40-6.50); %Basophils 0.9 % (0.0-1.0); %Eosinophils 0.8 % (0.0-10.0); %Lymphocytes 16.6 % (21.0-51.0); %Neutrophils 76.6 % (42.0-75.0); Hemoglobin 14.1 g/dL (12.0-16.0); Mean Corpuscular HGB CONC 35.3 g/dL (32.0-36.0); Mean Corpuscular Volume 90.7 fl (78.0-98.0); Platelet Count 235 10x3/uL (130-400); RBC Distribution Width 11.8 % (11.5-14.5); White Blood Cell (WBC) Count 8.8 10x3/uL (4.8-10.8)
[2023-01-08 09:18] LABS: ALT (SGPT) 40 U/L (8-55); AST (SGOT) 32 U/L (5-34); Alkaline Phosphatase 48 U/L (40-110); Anion Gap 20 mmol/L (10-20); BUN (Urea Nitrogen) 11 mg/dL (7.0-18.7); Bilirubin, Total 0.6 mg/dL (0.2-1.2); Calc. Creatinine Clearance 0 mL/min (70-130); Calcium 10.2 mg/dL (7.8-10.44); Carbon Dioxide 21 mmol/L (22-29); Chloride 90 mmol/L (98-107); Estimated GFR 89; Globulin 3.2 g/dL (2.4-3.5); Glucose 122 mg/dL (70-105); Potassium 3.6 mmol/L (3.5-5.1); Protein, Total 8.2 g/dL (6.0-8.3); Sodium 127 mmol/L (136-145)
[2023-01-08] MEDS ORDERED: hydrOXYzine 25 MG TAB ONE (09:30)
[2023-01-08] MEDS ORDERED: LORazepam 2 MG/ML SYR.(CARPUJECT) ONE (10:15)
== END 2023-01-08 12:20 | disposition home or self-care (01) ==
LOC: ERS 08:01
DX: F41.0 Panic disorder [episodic paroxysmal anxiety] (principal); F10.90 Alcohol use, unspecified, uncomplicated; R07.9 Chest pain, unspecified; R11.2 Nausea with vomiting, unspecified; I10 Essential (primary) hypertension; E78.5 Hyperlipidemia, unspecified; Y90.9 Presence of alcohol in blood, level not specified; Z87.891 Personal history of nicotine dependence
CPT/HCPCS: 71045; 80053; 83690; 84484; 85025; 93005; 94760; 96361; 96374; 96375; J2060; J2405